=== PATIENT | female | born 1965 | race Caucasian/White ===

== ENCOUNTER 2020-12-30 07:57 | Emergency (ER) | payer OTHER ==
[~2020-12-30] VITALS: Ht 154.9 cm; Wt 82.7 kg
[2020-12-30] MEDS ORDERED: MORPHINE SULFATE 4 MG/ML DISP.SYRIN. IV ONE ×3 (08:30→17:15)
--- NOTE | 2020-12-30 08:45 | PHYS DOC ---
Past History Past Surgical History: No Surgical History General Adult EDM: Chief Complaint: CHEST PAIN HPI: HPI: Patient is a 55 year old female who does not regularly seek medical attention who presents with chest pain since Saturday of this week (48 hours) that has g tana progressively worse. Describes as a constant pressure in her central chest. Occasionally gets sharp twinges that radiates to her back and between her shoulder blades. It is not necessarily exertional. No shortness of breath. No cough, fever, chills. It is worse with food and occasionally does have some upper abdominal pain as well. Associated with nausea and one episode of vomiting. She also complains of some tingling in her left upper extremity. States that she has had similar pains intermittently over the past several months, but they have been self-limited. Has not sought medical attention. Does not regularly see a PCP. No medical problems known to her. No medications. No medication allergies. No surgical history. Review of Systems: Review of Systems: Constitutional: Denies fever. endorses occasional chills. Eyes: Denies change in visual acuity HENT: Denies nasal congestion or sore throat Respiratory: Denies cough or shortness of breath Cardiovascular: + chest pain GI: Denies abdominal pain, bloody stools or diarrhea. + Nausea and vomiting. : Denies dysuria Musculoskeletal: + back pain radiating from chest. No joint pain Integument: Denies rash Neurologic: Denies headache, focal weakness or sensory changes Endocrine: Denies polyuria or polydipsia Lymphatic: Denies swollen glands Psychiatric: Denies depression or anxiety Current Medications: Current Meds: Current Medications Medications (Trade) Dose Ordered Sig/[facility] Start Time Stop Time Status Last Admin Dose Admin Morphine Sulfate (Morphine 4mg Syringe) 4 mg 1X ONCE 12/30/20 08:30 12/30/20 08:31 UNV Physical Exam: PE: Constitutional: Appears uncomfortable. Non-toxic. [] HENT: Normocephalic, atraumatic, bilateral external ears normal, oropharynx moist, no oral exudates, nose normal. [] Eyes: PERRLA, EOMI, conjunctiva normal, no discharge. [] Neck: Normal range of motion, no tenderness, supple, no stridor. [] Cardiovascular:Heart rate regular rhythm, no murmur. radial and DP pulses 2+ in b/l extremities. Lungs & Thorax: Some reproducible chest pain. Bilateral breath sounds clear to auscultation [] Abdomen: soft, non-distended. upper abdominal tenderness, worst in epigastrium. [] Skin: Warm, dry, no erythema, no rash. [] Back: No tenderness, no CVA tenderness. [] Extremities: No tenderness, no cyanosis, no clubbing, ROM intact, no edema. [] Neurologic: Alert and oriented X 3, normal motor function, normal sensory function, no focal deficits noted. [] Psychologic: Affect normal, judgement normal, mood normal. [] Current Patient Data: Vital Signs: Vital Signs Date Time Temp Pulse Resp B/P (MAP) Pulse Ox O2 Delivery O2 Flow Rate FiO2 12/30/20 08:05 98.0 74 16 144/88 (106) 94 Room Air EKG: EKG: Sinus rhythm. Rate 71. Normal intervals. QTc 422. Normal axis. No Q waves, T wave inversion, or ST elevation or depression. Normal EKG. Nonischemic. [] Radiology/Procedures: Radiology/Procedures: POC ultrasound did not see evidence of abdominal AAA or aortic flap in the abdominal aorta. [] Impressions: [place] [address] IMAGING REPORT Signed PATIENT: INDIA MORENO ACCOUNT: [id number] : 1965 LOCATION: ER AGE: 55 SEX: F EXAM STATUS: PRE ER ORD. PHYSICIAN: CHANCE QUEZADA MD REASON: chest pain going towards back PROCEDURE: CHEST AP ONLY AP portable chest radiograph 12/20/2020 Clinical History: Chest pain. An AP erect portable digital radiograph of the chest was obtained. No previous studies are available for comparison. The cardiac silhouette is mildly enlarged. The thoracic aorta is mildly tortuous. No acute pulmonary infiltrate is seen. No pleural effusion or pneumothorax is noted. The osseous structures are grossly intact. IMPRESSION: No acute abnormality is seen. Electronically signed by: Maynor Leon MD (12/30/2020 8:56 AM) [id number] DICTATED AND SIGNED BY: MAYNOR LEON MD DATE: 12/30/20 0852 CC: CHANCE QUEZADA MD; ASHLEY WRIGHT MD ~MTH0 [address] [place] [id number] IMAGING REPORT Signed PATIENT: INDIA MORENO ACCOUNT: [id number] : 1965 LOCATION: ER AGE: 55 SEX: F EXAM STATUS: REG ER ORD. PHYSICIAN: CHANCE QUEZADA MD REASON: Concern for aortic dissection.chest pain radiating to back-100MLS PROCEDURE: CT ANGIOGRAPHY CHEST EXAM: CT ANGIOGRAPHY OF THE CHEST WITH AND WITHOUT CONTRAST. HISTORY: Chest pain radiating to back. TECHNIQUE: Computed tomographic angiography of the chest was performed before and after the intravenous administration of iodinated contrast. 3-D maximum intensity projections were also performed. One or more of the following individualized dose reduction techniques were utilized for this examination: 1. Automated exposure control. 2. Adjustment of the mA and/or kV according to patient size. 3. Use of iterative reconstruction technique. COMPARISON: None. FINDINGS: Images of the upper abdomen reveal cholelithiasis with gallbladder wa ll thickening. Hyperemia within the adjacent hepatic parenchyma may reflect a component of inflammation and focal fatty sparing. Moderate heterogeneous diffuse hepatic steatosis is suspected. A 1 cm cyst is noted in the right hepatic lobe. There is a small hiatal hernia. Bone windows reveal no suspicious lesions. No pulmonary emboli are identified. There is no aortic dissection or aneurysm. There are no pathologically enlarged mediastinal or axillary lymph nodes. There is no pleural or pericardial effusion. The heart is not enlarged. There is some respiratory motion artifact. There are no acute infiltrates. IMPRESSION: 1. Cholelithiasis with gallbladder wall thickening suggests acute cholecystitis. 2. Heterogeneous diffuse hepatic steatosis with findings suggesting secondary inflammation within the adjacent hepatic parenchyma. Correlate with liver enzymes. 3. No aortic dissection or aneurysm. 4. Small hiatal hernia. Electronically signed by: Vandana Aguirre MD (12/30/2020 10:37 AM) [facility] DICTATED AND SIGNED BY: CHANCE AGUIRRE MD DATE: 12/30/20 1031 CC: CHANCE QUEZADA MD; ASHLEY WRIGHT MD ~MTH0 0 Heart Score: C/O Chest Pain: Yes HEART Score for Chest Pain: HEART Score for Chest Pain Response (Comments) Value History Moderately Suspicious 1 ECG Normal 0 Age >45 - < 65 1 Risk Factors No Risk Factors 0 Troponin < Normal Limit 0 Total 2 Risk Factors: Risk Factors: DM, Current or recent (<one month) smoker, HTN, HLP, family history of CAD, obesity. Risk Scores: Score 0 - 3: 2.5% MACE over next 6 weeks - Discharge Home Score 4 - 6: 20.3% MACE over next 6 weeks - Admit for Clinical Observation Score 7 - 10: 72.7% MACE over next 6 weeks - Early Invasive Strategies Course & Med Decision Making: Course & Med Decision Making Pertinent Labs and Imaging studies reviewed. (See chart for details) Patient a 55-year-old female who does not regularly seek medical attention who presents with chest pain that radiates through to her back. Related to food. Has been present for 2 days and is gradually worsening. Associated with nausea, vomiting, anorexia. On arrival is afebrile, hemodynamically stable. Appears uncomfortable but nontoxic. Does have some reproducible chest pain as well as upper abdominal tenderness. EKG is nonischemic. DDx includes ACS, biliary disease, pancreatitis, esophageal disease, also consid ered aortic dissection. Feel PE is less likely without pleuritic pain, sob, and normal spo2. POC US did not show any dilation or flap in the abdominal aorta. aortic outlet not atretic but obviously the rest of the thoracic aorta was not evaluated. Will check CBC, CMP, chest x-ray, troponin, UA initially and pursue additional work-up as needed. 0942 LFTs and lipase normal. making pancreatitis, cholecystitis, choledocholithiasis seem less likely. CXR read as normal. troponin negative, and given duration of symptoms should be sufficient to r/o ACS. Will pursue CTA of chest to exclude dissection. Will also evaluate for pulmonary or mediastinal cause of pain. 0948 CTA showed evidence of cholecystitis. Reevaluation shows that she does have continued RUQ and epigastric tenderness to palpation. She does state that this chest pain has occurred intermittently with food intake over the past several weeks, but had self resolved until last night when it became more constant. Will give Zosyn for antibiotic coverage and discussed transfer to a facility with surgical capabilities. [address] Galdamez at [facility]. 1233 [place] Disclaimer: Priyank Disclaimer: This electronic medical record was generated, in whole or in part, using a voice recognition dictation system. Departure Departure: Impression: Primary Impression: Cholecystitis Additional Impression: Chest pain Disposition: 02 [facility]ORT TERM [facility]OSPITAL Condition: STABLE Referrals: ASHLEY WRIGHT MD (PCP) CHANCE QUEZADA MD Dec 30, 2020 08:45
--- NOTE | 2020-12-30 08:59 | RAD ---
AP portable chest radiograph 12/20/2020 Clinical History: Chest pain. An AP erect portable digital radiograph of the chest was obtained. No previous studies are available for comparison. The cardiac silhouette is mildly enlarged. The thoracic aorta is mildly tortuous. No acute pulmonary infiltrate is seen. No pleural effusion or pneumothorax is noted. The osseous structures are grossly intact. IMPRESSION: No acute abnormality is seen. Electronically signed by: Maynor Leon MD (12/30/2020 8:56 AM) [id number]
[2020-12-30 09:17] LABS: BASO # 0.1 x10^3/uL (0.0-0.2); BASO % 1 % (0-3); EOS % 0 % (0-3); HEMATOCRIT 42.7 % (36.0-47.0); LYMPH # 2.2 x10^3/uL (1.0-4.8); LYMPH % 19 % (24-48); MEAN CORPUSCULAR HEMOGLOBIN 28 pg (25-35); MEAN CORPUSCULAR HGB CONC 33 g/dL (31-37); MEAN CORPUSCULAR VOLUME 87 fL (79-100); MONO # 0.4 x10^3/uL (0.0-1.1); MONO % 4 % (0-9); NEUT # 8.7 x10^3uL (1.8-7.7); NEUT % 76 % (31-73); PLATELET COUNT 275 x10^3/uL (140-400); RED BLOOD COUNT 4.93 x10^6/uL (3.50-5.40); RED CELL DISTRIBUTION WIDTH 13.9 % (11.5-14.5); WHITE BLOOD COUNT 11.5 x10^3/uL (4.0-11.0)
[2020-12-30 09:32] LABS: CALCIUM 9.3 mg/dL (8.5-10.1); CREATININE 0.8 mg/dL (0.6-1.0); GFR 74.5; POTASSIUM 3.8 mmol/L (3.5-5.1)
[2020-12-30 09:37] LABS: ALBUMIN 3.4 g/dL (3.4-5.0); ALBUMIN/GLOBULIN RATIO 0.9 (1.0-1.7); TOTAL BILIRUBIN 0.8 mg/dL (0.2-1.0); TOTAL PROTEIN 7.1 g/dL (6.4-8.2)
[2020-12-30] MEDS ORDERED: IOHEXOL 350 MG/ML 100 ML VIAL. IV ONE (10:00)
[2020-12-30] MEDS ORDERED: CONTRAST GIVEN. MC PRN (10:15)
--- NOTE | 2020-12-30 10:25 | EKG ---
[address] [address] Test Date: 2020-12-30 Test Time: 08:04:53 Pat Name: INDIA MORENO Department: Room: Gender: F Diamond Blender: CLAUDIA : 1965 Requested By: CHANCE QUEZADA Order Number: [id number] Reading MD: Measurements Intervals [place] Rate: 71 P: 30 TN: 140 QRS: 2 QRSD: 74 T: 11 QT: 388 QTc: 422 Interpretive Statements SINUS RHYTHM NORMAL ECG RI6.02 No previous ECG available for comparison
--- NOTE | 2020-12-30 10:39 | RAD ---
EXAM: CT ANGIOGRAPHY OF THE CHEST WITH AND WITHOUT CONTRAST. HISTORY: Chest pain radiating to back. TECHNIQUE: Computed tomographic angiography of the chest was performed before and after the intraveno us administration of iodinated contrast. 3-D maximum intensity projections were also performed. One o r more of the following individualized dose reduction techniques were utilized for this examination: 1. Automated exposure control. 2. Adjustment of the mA and/or kV according to patient size. 3. Use of iterative reconstruction technique. COMPARISON: None. FINDINGS: Images of the upper abdomen reveal cholelithiasis with gallbladder wall thickening. Hyperem ia within the adjacent hepatic parenchyma may reflect a component of inflammation and focal fatty spa ring. Moderate heterogeneous diffuse hepatic steatosis is suspected. A 1 cm cyst is noted in the righ t hepatic lobe. There is a small hiatal hernia. Bone windows reveal no suspicious lesions. No pulmonary emboli are identified. There is no aortic dissection or aneurysm. There are no pathologically enlarged mediastinal or axillary lymph nodes. There is no pleural or senthil cardial effusion. The heart is not enlarged. There is some respiratory motion artifact. There are no acute infiltrates. IMPRESSION: 1. Cholelithiasis with gallbladder wall thickening suggests acute cholecystitis. 2. Heterogeneous diffuse hepatic steatosis with findings suggesting secondary inflammation within the adjacent hepatic parenchyma. Correlate with liver enzymes. 3. No aortic dissection or aneurysm. 4. Small hiatal hernia. Electronically signed by: Vandana Aguirre MD (12/30/2020 10:37 AM) [facility]
[2020-12-30] MEDS ORDERED: PIPERACILLIN/TAZOBACTAM 4.5 GM in IV NORMAL SALINE 50ML 50 ML IV ONE (11:00)
[2020-12-30] MEDS ORDERED: PIPERACILLIN/TAZOBACTAM 4.5 GM VIAL IV ONE (11:18)
[2020-12-30] MEDS ORDERED: IV NORMAL SALINE 50ML 50 ML ONE (11:18)
[2020-12-30] MEDS ORDERED: IV NORMAL SALINE 1,000ML 1,000 ML IV ONE (11:30)
[2020-12-30 12:05] VITALS: BP 149/83
[2020-12-30 12:18] LABS: BACTERIA,URINE 0 /HPF (0-FEW); BILIRUBIN,URINE NEG (NEG); CLARITY,URINE CLEAR; COLOR,URINE STRAW; GLUCOSE,URINE NEG (NEG); NITRITE,URINE NEG (NEG); RBC,URINE OCC /HPF (0-2); SQUAMOUS EPITHELIAL CELL,UR MOD /LPF; UROBILINOGEN,URINE 0.2 mg/dL (0.2 mg/dL)
[2020-12-30] MEDS ORDERED: MORPHINE SULFATE 4 MG/ML DISP.SYRIN. ONE (16:32)
== END 2020-12-30 17:40 | disposition short-term general hospital (02) ==
LOC: ER 07:57
DX: R07.89 Other chest pain (principal); K81.9 Cholecystitis, unspecified
CPT/HCPCS: 36415; 71045; 71275; 80053; 81001; 83690; 84484; 85025; 93005; 96361; 96365; 96375; 96376; 99285; J2270; J2543; J7030; Q9967